=== PATIENT | female | born 1955 | race Caucasian/White ===

== ENCOUNTER → 2018-12-28 12:12 | Outpatient (CLI) | payer BC, SELFPAY ==
--- NOTE | 2018-12-28 12:24 | XR_ITS ---
PROCEDURE: XR SACRUM COCCYX MIN 2V CLINICAL INDICATION: COCCYGEAL PAIN COMPARISON: No exams were available for comparison FINDINGS: Bone density is normal. There is no fracture. Sacroiliac joints and the margins of the sacral foramina appear normal. Visualized portions of both hips are unremarkable. There are some aortic calcified plaques. There is loss of disc space height at L5-S1. IMPRESSION: No acute process. L5-S1 chronic degenerative disc disease. Dictated by: Louis Lloyd 12/28/2018 12:42 Electronically signed by Louis Lloyd in [place] 12/28/2018 12:42
== END ==
PROVIDERS: PCP Family Medicine; Visit Provider Physician Assistant
DX: M53.3 Sacrococcygeal disorders, not elsewhere classified (principal)
CPT/HCPCS: 72220